=== PATIENT | female | born 1990 | race African-American/Black ===

== ENCOUNTER 2016-11-22 20:16 | Emergency (ER) ==
[2016-11-22 22:06] LABS: MANUAL DIFF NEEDED? NO
[2016-11-22 22:09] LABS: BASO% 0.2 % (0.0-0.8); EOS# 0.23 X1000 (0.0-0.7); EOS% 2.5 % (0.0-10.0); HEMATOCRIT 34.5 % (37.0-47.0); HEMOGLOBIN 11.7 g/dL (12.0-16.0); IMM GRAN# 0.01 X1000 (0.0-0.04); IMM GRAN% 0.1 % (0.0-0.5); LYMPH# 4.51 X1000 (1.2-3.4); LYMPH% 49.5 % (20.5-51.1); MCH 28.7 PG (27-31); MCHC 33.9 g/dL (33-37); MCV 84.6 FL (81-99); MONO# 0.71 X1000 (0.11-0.59); MONO% 7.8 % (1.7-9.3); MPV 8.9 FL (7.4-10.4); NEUT% 39.9 % (42.2-75.2); PLT 243 X1000 (130-400); RBC 4.08 XMIL (4.2-5.4)
--- NOTE | 2016-11-22 22:24 | PROVIDER DOCUMENTATION ---
HPI-Female /OB/Breast - General Source: reports: patient - History of Present Illness-Female /OB Does patient report she is ?: Yes Radiation: reports: suprapubic Quality of Pain: reports: other (describes it as soreness) Severity in ED: reports: moderate Onset/Duration: reports: 2 days ago Timing: reports: still present Context/Activities at Onset: reports: none Vaginal Symptoms: reports: abnormal bleeding, passing clots/tissue Vaginal Bleeding Amount: Medium/Moderate Urinary Symptoms: reports: no symptoms <Jose E Cody - Last Filed: 11/22/16 22:19> - General Source: reports: patient <KevynMarylin DonaldPhilipp - Last Filed: 11/23/16 01:15> - General Chief Complaint: Female Stated Complaint: 10 WKS PREG-ABD PAIN,BLEENDING Time Seen by Provider: 11/22/16 21:46 Allergies/Adverse Reactions: Patient Allergies Allergy/AdvReac Type Severity Reaction Status Date / Time ibuprofen [From Motrin] Allergy NAUSEA/VOMI Verified 02/20/16 18:55 TING iodine Allergy SWELLING Verified 02/20/16 18:55 - History of Present Illness-Female /OB Nature of Presenting Problem: 26 y/o F present to the ED with vaginal bleeding with clots that began yesterday stating she is is 9 weeks . This is her Para 4 Gravita 3and her last was born early. (Jose E Cody) Review of Systems - Adult - REVIEW OF SYSTEMS - ADULT Constitutional: denies: chills, fever Eyes: reports: no symptoms reported Ears, Nose, Mouth & Throat: reports: no symptoms reported Cardiovascular: reports: no symptoms reported Respiratory: denies: cough Gastrointestinal: reports: abdominal pain. denies: diarrhea, nausea, vomiting Genitourinary: reports: other (vaginal bleeding). denies: dysuria, frequency, incontinence Musculoskeletal: reports: no symptoms reported Integumentary: reports: no symptoms reported Neurological: reports: no symptoms reported Psychiatric: reports: no symptoms reported Endocrine: reports: no symptoms reported Hematologic/Lymphatic: reports: no symptoms reported Allergic/Immunologic: reports: no symptoms reported All Other Systems: Reviewed and Negative <Jose E Cody - Last Filed: 11/22/16 22:19> Past History - Adult - PAST MEDICAL HISTORY-ADULT Review of Records: reports: Old Records Reviewed, Nursing Assessment Review, Medications Reviewed Major Childhood Illnesses: reports: denies history Cardiovascular: reports: denies history Respiratory: reports: denies history Gastrointestinal: reports: denies history Obstetrical/Gynecological: reports: denies history Genitourinary: reports: other (recent UTI; received rocephin shot and one bactrim at visit) Musculoskeletal: reports: other (chronic low back pain "after work") Neurological: reports: denies history Endocrine/Immune: reports: denies history Other Conditions: reports: denies history - PRIOR SURGERIES/PROCEDURES Surgical/Procedure History: reports: - IMMUNIZATION STATUS Childhood Immunizations: UTD Flu Vaccine: See Nurse Assessment - FAMILY HISTORY Family History: reviewed, not pertinent <Jose E Cody - Last Filed: 11/22/16 22:19> Physical Exam-General - PHYSICAL EXAM-ADULT Initial Vital Signs Reviewed: Yes - CONSTITUTIONAL General Appearance: appears well, alert, no apparent distress - EYES Eyes: PERRL/EOMI, pink conjunctivae - HEAD, EARS, NOSE, MOUTH & THROAT HENMT: moist mucous membranes, normal ENT inspection, TMs normal, pharynx normal - NECK Neck: non-tender, full range of motion, supple, normal inspection - RESPIRATORY Respiratory: lungs clear, normal breath sounds, no pleuratic chest pain, no respiratory distress, no accessory muscle use - CARDIOVASCULAR Cardiovascular: normal peripheral pulses, regular rate, rhythm - GASTROINTESTINAL (ABDOMEN) Abdominal Exam: normal bowel sounds, non tender, soft - MUSCULOSKELETAL Back Exam: normal inspection, no CVA tenderness, no vertebral tenderness Extremity: normal range of motion, non-tender, normal gait, normal inspection - SKIN Integumentary: normal color, normal turgor, warm/dry - NEUROLOGIC Neurologic: grossly normal, no motor/sensory deficits - PSYCHIATRIC Psych/Mental Status: normal mood/affect, normal thought content, normal thought process, oriented x 3 <Jose E Cody - Last Filed: 11/22/16 22:19> - GENITOURINARY Female Genitalia/Pelvic Exam: other (blood in vaginal vault. cervical os closed. no clots visualized.). negative: tender w/ cervical motion, tender adnexa, tender uterus <Marylin Bagley - Last Filed: 11/23/16 01:15> Progress <Jose E Cody - Last Filed: 11/22/16 22:19> - ULTRASOUND (By Radiology) 1 US Study: Abdomen US Results: ectopic right adnexa. FHR 101. - CONSULTS/PCP/HOSPITALIST Notification #1 *Consult/PCP/Hospitalist*: Dr. Anaya, CLOUD SOFTWARE ENGINEER Time Discussed: 23:45 Reason/Comments: live ectopic Consult Disposition: Will see in ED <Marylin Bagley - Last Filed: 11/23/16 01:15> - PLAN OF CARE/RESULTS Progress/Plan/Lab Results: Laboratory Tests 11/22/16 11/22/16 11/22/16 21:55 21:55 21:55 WBC 9.11 RBC 4.08 L Hgb 11.7 L Hct 34.5 L MCV 84.6 MCH 28.7 MCHC 33.9 RDW Std Deviation 13.1 Plt Count 243 MPV 8.9 Immature Gran % (Auto) 0.1 Neut % (Auto) 39.9 L Lymph % (Auto) 49.5 [place] % (Auto) 7.8 Eos % (Auto) 2.5 Baso % (Auto) 0.2 Immature Gran # (Auto) 0.01 Neut # (Auto) 3.63 Lymph # (Auto) 4.51 H [place] # (Auto) 0.71 H Eos # (Auto) 0.23 Baso # (Auto) 0.02 Sodium Potassium Chloride Carbon Dioxide Anion Gap BUN Creatinine Estimated GFR/1.73 m2 BUN/Creatinine Ratio Glucose Calculated Osmolality Calcium Total Bilirubin AST ALT Alkaline Phosphatase Total Protein Albumin Globulin Albumin/Globulin Ratio Ser , Semi-Qnt 3389.0 Urine Source Urine Color Urine Clarity Urine pH Ur Specific Pep Urine Protein Urine Ketones Urine Blood Urine Nitrite Urine Bilirubin Urine Urobilinogen Urine Microscopic RBC Urine WBC Urine Microscopic WBC Ur Epithelial Cells Urine Bacteria Urine Glucose Blood Type O POSITIVE 11/22/16 11/22/16 21:55 21:55 WBC RBC Hgb Hct MCV MCH MCHC RDW Std Deviation Plt Count MPV Immature Gran % (Auto) Neut % (Auto) Lymph % (Auto) [place] % (Auto) Eos % (Auto) Baso % (Auto) Immature Gran # (Auto) Neut # (Auto) Lymph # (Auto) [place] # (Auto) Eos # (Auto) Baso # (Auto) Sodium 136 Potassium 3.2 L Chloride 101 Carbon Dioxide 24 L Anion Gap 10 BUN 10 Creatinine 0.6 Estimated GFR/1.73 m2 > 60 BUN/Creatinine Ratio 17 Glucose 85 Calculated Osmolality 270 Calcium 8.9 Total Bilirubin 0.50 AST 12 ALT 7 L Alkaline Phosphatase 53 Total Protein 7.0 Albumin 4.1 Globulin 3.0 Albumin/Globulin Ratio 1.0 Ser , Semi-Qnt Urine Source CLEAN CATCH Urine Color YELLOW Urine Clarity CLEAR Urine pH 6.0 Ur Specific Pep 1.020 Urine Protein NEGATIVE Urine Ketones 2+(Moderate) A Urine Blood 2+ A Urine Nitrite NEGATIVE Urine Bilirubin NEGATIVE Urine Urobilinogen NORMAL Urine Microscopic RBC 10-20 A Urine WBC NEGATIVE Urine Microscopic WBC <10 Ur Epithelial Cells <10 Urine Bacteria 2+ Urine Glucose NEGATIVE Blood Type Orders Category Date Time Status Discharge Patient Routine AdmDCTranf 11/23/16 00:57 Ordered Pelvic set up DIRECTED Care 11/22/16 21:52 Active US OBS COMPLETE < 14 WKS [US] Stat Exams 11/22/16 21:50 Taken ABORH [BBK] Stat Lab 11/22/16 21:55 Completed CBC WITH DIFF [HEME] Stat Lab 11/22/16 21:55 Completed CHLAMYDIA AND GC BY PCR SWAB [GIRON] Stat Lab 11/22/16 21:55 Received COMPREHENSIVE METABOLIC PANEL [CHEM] Stat Lab 11/22/16 21:55 Completed GRAM STAIN AND WET PREP [DIREX] Stat Lab 11/22/16 23:05 Completed QUANT TEST Stat Lab 11/22/16 21:[address] W/POSS RFLX CULT [URINALYSIS] Stat Lab 11/22/16 21:55 Completed URINE CULTURE [RM] Routine Lab 11/22/16 23:09 Ordered Methotrexate Med 11/23/16 01:00 Once 82 mg IM ONCE ONE Oxycodone/APAP 10 mg/325 mg [Percocet-10] Med 11/23/16 00:55 Once 1 each PO NOW ONE Vital Signs Temp Pulse Resp BP Pulse Ox 11/22/16 20:35 97.9 F 87 18 119/62 100 ibuprofen [From Motrin] Allergy (Verified 02/20/16 18:55) NAUSEA/VOMITING iodine Allergy (Verified 02/20/16 18:55) SWELLING Oxycodone HCl/Acetaminophen [Percocet 10-325 mg Tablet] 1 each PO Q6H PRN #20 tablet 11/23/16 Laboratory 11/22/16 11/22/16 11/22/16 21:55 21:55 21:55 WBC RBC Hgb Hct MCV MCH MCHC RDW Std Deviation Plt Count MPV Immature Gran % (Auto) Neut % (Auto) Lymph % (Auto) [place] % (Auto) Eos % (Auto) Baso % (Auto) Immature Gran # (Auto) Neut # (Auto) Lymph # (Auto) [place] # (Auto) Eos # (Auto) Baso # (Auto) Sodium 136 Potassium 3.2 L Chloride 101 Carbon Dioxide 24 L Anion Gap 10 BUN 10 Creatinine 0.6 Estimated GFR/1.73 m2 > 60 BUN/Creatinine Ratio 17 Glucose 85 Calculated Osmolality 270 Calcium 8.9 Total Bilirubin 0.50 AST 12 ALT 7 L Alkaline Phosphatase 53 Total Protein 7.0 Albumin 4.1 Globulin 3.0 Albumin/Globulin Ratio 1.0 Ser , Semi-Qnt Urine Source CLEAN CATCH Urine Color YELLOW Urine Clarity CLEAR Urine pH 6.0 Ur Specific Pep 1.020 Urine Protein NEGATIVE Urine Ketones 2+(Moderate) A Urine Blood 2+ A Urine Nitrite NEGATIVE Urine Bilirubin NEGATIVE Urine Urobilinogen NORMAL Urine Microscopic RBC 10-20 A Urine WBC NEGATIVE Urine Microscopic WBC <10 Ur Epithelial Cells <10 Urine Bacteria 2+ Urine Glucose NEGATIVE Blood Type O POSITIVE 11/22/16 11/22/16 21:55 21:55 WBC 9.11 RBC 4.08 L Hgb 11.7 L Hct 34.5 L MCV 84.6 MCH 28.7 MCHC 33.9 RDW Std Deviation 13.1 Plt Count 243 MPV 8.9 Immature Gran % (Auto) 0.1 Neut % (Auto) 39.9 L Lymph % (Auto) 49.5 [place] % (Auto) 7.8 Eos % (Auto) 2.5 Baso % (Auto) 0.2 Immature Gran # (Auto) 0.01 Neut # (Auto) 3.63 Lymph # (Auto) 4.51 H [place] # (Auto) 0.71 H Eos # (Auto) 0.23 Baso # (Auto) 0.02 Sodium Potassium Chloride Carbon Dioxide Anion Gap BUN Creatinine Estimated GFR/1.73 m2 BUN/Creatinine Ratio Glucose Calculated Osmolality Calcium Total Bilirubin AST ALT Alkaline Phosphatase Total Protein Albumin Globulin Albumin/Globulin Ratio Ser , Semi-Qnt 3389.0 Urine Source Urine Color Urine Clarity Urine pH Ur Specific Pep Urine Protein Urine Ketones Urine Blood Urine Nitrite Urine Bilirubin Urine Urobilinogen Urine Microscopic RBC Urine WBC Urine Microscopic WBC Ur Epithelial Cells Urine Bacteria Urine Glucose Blood Type Dr. Anaya saw the patient and discussed treatment options for ectopic . Patient opted for Methotrexate, which was given in the ER. Patient will follow up for labs on SundayNov [address] Anaya on Nov [address] Anaya. (Marylin Bagley) Departure <Jose E Cody - Last Filed: 11/22/16 22:19> - Departure Time of Disposition Order: 01:11 Certified Medical Emergency: Emergent <Marylin Bagley - Last Filed: 11/23/16 01:15> - Departure DIAGNOSIS: Ectopic Qualifiers: Location of ectopic : tubal Disposition: HOME 01 Condition: Good Additional Instructions: Go to labor and delivery on Sunday for labs. Follow up with Dr. Anaya on Tuesday November 29, 2016. Return to the ER immediately for any new or worsening symptoms. ED Follow Up Instructions: You have been treated by a care provider in the Emergency Department. These instructions are being provided to you so you can have an understanding of how to care for yourself upon discharge. Upon discharge from the Emergency Department, you are responsible for making arrangements for follow-up care by a physician of your choice. Take all prescribed medications as directed. Return to the Emergency Department immediately for any new or worsening symptoms. You may call the Physician Referral phone number at [phone] to obtain a list of Physicians who are taking new patients. Prescriptions: Oxycodone HCl/Acetaminophen [Percocet 10-325 mg Tablet] 1 each PO Q6H PRN #20 tablet PRN Reason: Pain Referrals: Jovana Anaya MD [STAFF PHYSICIAN] - Attestation - Scribe Verification/Attestation Scribe:: Jose E Cody Acting as Scribe for:: Marylin Bagley Scribe documention review:: This chart was documented by a scribe and accurately reflects the service the provider performed and the decisions made by the provider. - Physician/ Mid-level Attestation Patient care was provided by Mid-level provider (OPERATING ROOM TECHNICIAN/PA):: Yes Mid-level provider:: Marylin Bagley Mid-level documentation review:: The Mid-level provider documentation, treatment plan and medical decision making was reviewed by the physician who agrees with all treatment and medical decision making by the MLP. <Jose E Cody - Last Filed: 11/22/16 22:19> - Physician/ Mid-level Attestation Patient care was provided by Mid-level provider (OPERATING ROOM TECHNICIAN/PA):: Yes Mid-level provider:: Marylin Bagley Mid-level documentation review:: The Mid-level provider documentation, treatment plan and medical decision making was reviewed by the physician who agrees with all treatment and medical decision making by the MLP. <Marylin Bagley - Last Filed: 11/23/16 01:15> Physician Attestation
[2016-11-22 22:30] LABS: URINE SOURCE CLEAN CATCH
[2016-11-22 22:40] LABS: AGAP 10; ALBUMIN 4.1 g/dL (3.5-5.0); ALKALINE PHOSPHATASE 53 U/L (32-104); BUN 10 mg/dL (8-22); CALCIUM 8.9 mg/dL (8.8-10.2); CHLORIDE 101 mmol/L (98-107); COSMO 270; GOT 12 U/L (10-30); GPT 7 U/L (10-36); POTASSIUM 3.2 mmol/L (3.5-5.1); SODIUM 136 mmol/L (136-145); TCO2 24 mmol/L (25-35)
[2016-11-22 23:06] LABS: BILIRUBIN URINE NEGATIVE (NEGATIVE); BLOOD URINE 2+ (NEGATIVE); CLARITY CLEAR (CLEAR); COLOR YELLOW; GLUCOSE URINE NEGATIVE (NEGATIVE); LEUKOCYTES URINE NEGATIVE (NEGATIVE); NITRITE URINE NEGATIVE (NEGATIVE); PROTEIN URINE NEGATIVE (NEGATIVE); UROBILINOGEN URINE NORMAL
[2016-11-22 23:08] LABS: URINE EPITHELIAL CELLS <10 /HPF (<10); URINE WBC <10 /HPF (<10)
[2016-11-22 23:09] LABS: URINE CULTURE PL NEEDED? YES
[2016-11-23] MEDS ORDERED: PERCOCET-10 PO ONE (00:55)
[2016-11-23] MEDS ORDERED: METHOTREXATE IM ONE (01:00)
[2016-11-23] MEDS ORDERED: METHOTREXATE ONE (01:14)
--- NOTE | 2016-11-23 01:33 | HISTORY AND PHYSICAL ---
HISTORY OF PRESENT ILLNESS: The patient is a 26-year-old, G4, P3-0-0-3, with a positive test, with last menstrual period in September. The patient presented to the emergency room complaining of abdominal pain and vaginal bleeding. During evaluation she was noted to have a HCG of 3300, with a transvaginal ultrasound, which showed a right ectopic with SCA. No free fluid noted. PAST MEDICAL HISTORY: None. PAST SURGICAL HISTORY: section. OB HISTORY: Spontaneous vaginal delivery x2, primary x1. FARE REGISTER REPAIRER HISTORY: Noncontributory. SOCIAL HISTORY: Positive tobacco and marijuana use. PHYSICAL EXAMINATION: VITAL SIGNS: Patient afebrile. Vital signs are stable. GENERAL: Patient in no acute distress. LUNGS: Respirations nonlabored. ABDOMEN: Soft, nontender, nondistended. LABS: Results returned significant for hematocrit of 34, quantitative HCG of 3300. Transvaginal ultrasound with right ectopic , positive SCA, and no free fluid noted in the abdomen. Ectopic measuring approximately 5 weeks gestation. ASSESSMENT AND PLAN: A 26-year-old, G4, P-0-0-3, with a right ectopic . Risks benefits and alternatives were discussed with the patient, and she desires to proceed with medical management on methotrexate. Patient counseled on the risk of failure given positive SCA, still desires to proceed. We will administer methotrexate 82 mg IM, and stressed the importance of patient follow up for labs on day 4 and day 7. Prescription given for Percocet 10/325, #20. The patient also counseled on the possible risk of rupture during treatment course, and precautions given on when to follow up.
[2016-11-23 01:41] VITALS: BP 114/78
--- NOTE | 2016-11-23 08:54 | Diag Imaging Result Document ---
PROCEDURE NAME: US OBS COMPLETE < 14 WKS - 11/22/2016 OBSTETRIC ULTRASOUND: COMPARISON: None available for this . FINDINGS: There is no intrauterine gestational sac appreciated. In the left adnexal region, there is an obvious gestational sac with a yolk sac and a tiny pole consistent with an ectopic . It is adjacent to the left ovary. Both ovaries exhibit normal Doppler flow. There is no sign of free fluid in the pelvis to indicate hemorrhage on this study. The measured heart rate is 101 beats per minute. The gestational age by ultrasound is 5 weeks 5 days. IMPRESSION: Left adnexal ectopic as described with no evidence of gross hemorrhage at this time.
== END 2016-11-23 01:38 | disposition home or self-care (01) ==
LOC: P.ED 20:16
DX: O00.80 Other ectopic pregnancy without intrauterine pregnancy (principal); O26.891 Other specified pregnancy related conditions, first trimester; Z3A.10 10 weeks gestation of pregnancy; R10.9 Unspecified abdominal pain; M54.5 Low back pain; G89.29 Other chronic pain
CPT/HCPCS: 76801; 80053; 81001; 84702; 85025; 86900; 86901; 87088; 87205; 87210; 87491; 87591; 96372; J9260